=== PATIENT | male | born 1960 | race Caucasian/White ===

== ENCOUNTER 2023-10-14 06:49 | Day surgery (SDC) | payer SELFPAY ==
[2023-10-08 14:27] VITALS: BMI 27.9
[2023-10-14] MEDS ORDERED: BACITRACIN ZINC 15 GM TUBE TOPICAL OINTMENT ONE (08:19)
[2023-10-14] MEDS ORDERED: NITROGLYCERIN 2% OINTMENT - 1GM PACKET TD ONE (08:19)
[2023-10-14] MEDS ORDERED: LIDOCAINE HCL 1%, 10 MG/ML (20ML VIAL) ONE (08:19)
[2023-10-14] MEDS ORDERED: EPINEPHrine/PF 1 MG/1 ML (1:1,000) AMPULE ONE ×2 (08:19→09:32)
[2023-10-14] MEDS ORDERED: BUPIVACAINE HCL/PF 2.5 MG/ML - 30 ML VIAL IJ ONE (08:20)
[2023-10-14] MEDS ORDERED: LIDOCAINE HCL/PF 2% SDV 5ML VIAL ONE (08:25)
[2023-10-14] MEDS ORDERED: MIDAZOLAM HCL 2 MG/2 ML SINGLE DOSE VIAL ONE (08:25)
[2023-10-14] MEDS ORDERED: PROPOFOL 20 ML ONE ×2 (08:25→13:33)
[2023-10-14] MEDS ORDERED: ROCURONIUM BROMIDE 50 MG/5 ML SYRINGE ONE ×2 (08:25→10:54)
[2023-10-14] MEDS ORDERED: ceFAZolin SODIUM 1 GM VIAL ONE (08:28)
[2023-10-14] MEDS ORDERED: BUPIVACAINE LIPOSOME/PF (EXPAREL) 266 MG/20 ML VIAL ONE (09:33)
[2023-10-14] MEDS ORDERED: HEPARIN NA (PORCINE) 5,000 UNITS/ML 1ML VIAL ONE (09:40)
[2023-10-14] MEDS: HEPARIN NA (PORCINE) 5,000 UNITS/ML 1ML VIAL SQ ONE ×2 (09:54→16:31)
[2023-10-14] MEDS ORDERED: ONDANSETRON 4 MG/2 ML VIAL ONE (10:28)
[2023-10-14] MEDS ORDERED: DEXAMETHASONE SOD PHOSPHATE 4 MG/1 ML VIAL ONE (10:28)
[2023-10-14] MEDS ORDERED: BUPIVACAINE HCL/PF 0.25% (2.5MG/ML) 10 ML VIAL ONE (10:31)
[2023-10-14] MEDS: BUPIVACAINE HCL/PF 2.5 MG/ML - 30 ML VIAL IJ ONE (11:50)
[2023-10-14] MEDS: BUPIVACAINE LIPOSOME/PF (EXPAREL) 266 MG/20 ML VIAL NR ONE (11:50)
[2023-10-14] MEDS ORDERED: ONDANSETRON 4 MG/2 ML VIAL IVPUSH PRN (14:57)
[2023-10-14] MEDS ORDERED: ONDANSETRON 4 MG/2 ML VIAL IVPB PRN (14:57)
[2023-10-14] MEDS ORDERED: oxyCODONE HCL 5 MG TABLET PO PRN ×2 (14:57)
[2023-10-14] MEDS: ACETAMINOPHEN 1000 MG/100 ML BAG IVPB ONE (15:06)
[2023-10-14] MEDS: LACTATED RINGERS SOLUTION 1,000 ML IV SCH ×2 (16:22→21:09)
[2023-10-14] MEDS: CEFAZOLIN 1 GM in DEXTROSE 5%-WATER - 50 ML IVPB SCH (18:38)
[2023-10-14] MEDS: ATORVASTATIN CA 20 MG TABLET (FP) PO SCH (21:52)
[2023-10-14] MEDS: oxyCODONE HCL 5 MG TABLET PO PRN (21:52)
[2023-10-15] MEDS ORDERED: FAMOTIDINE/PF 20 MG/2 ML VIAL IVPB ONE (00:15)
[2023-10-15] MEDS ORDERED: ZOLPIDEM TARTRATE 5 MG TABLET PO ONE (00:15)
[2023-10-15] MEDS: ZOLPIDEM TARTRATE 5 MG TABLET PO ONE (00:21)
[2023-10-15 00:27] VITALS: RESP 17
[2023-10-15] MEDS: ACETAMINOPHEN 1000 MG/100 ML BAG IVPB PRN (00:27)
[2023-10-15] MEDS: FAMOTIDINE 20 MG PREMIXED IVPB IVPB ONE (00:35)
[2023-10-15] MEDS: MAG HYDROX/AL HYDROX/SIMETH 30 ML UNIT-DOSE CUP PO PRN (02:16)
[2023-10-15 06:25] VITALS: TEMP 98.1
[2023-10-15] MEDS: HEPARIN NA (PORCINE) 5,000 UNITS/ML 1ML VIAL SQ SCH (08:43)
[2023-10-15 10:31] VITALS: BP 112/76; PULSE 72
== END 2023-10-15 11:29 | disposition home or self-care (01) ==
LOC: FASUSAT 06:49 → SUATTDRO 06:49 → FM/S 16:04 → FASUSAT 10-15 11:29
PROC: 0W0F0ZZ Alteration of Abdominal Wall, Open Approach (ICD-10-PCS; principal; 2023-10-14 10:45)
PROC: 0J083ZZ Alteration of Abdomen Subcutaneous Tissue and Fascia, Percutaneous Approach (ICD-10-PCS; 2023-10-14 10:45)
DX: M95.8 Other specified acquired deformities of musculoskeletal system (principal); E65 Localized adiposity
CPT/HCPCS: 94760; J0131; J1644

== ENCOUNTER 2023-10-22 13:27 | Emergency (ER) | payer BC ==
[2023-10-22 14:17] LABS: HEMATOCRIT 39.2 % (35.4-49); HEMOGLOBIN 12.7 G/dL (11.7-16.9); MCHC 32.3 g/dl (32.0-35.9); MEAN CELL VOLUME 92.6 fl (80-96); PLATELET COUNT 293.2 10^3/uL (134-434); RBC 4.23 10^6/uL (4.00-5.60); RDW 15.6 % (11.9-15.9); WHITE BLOOD COUNT 7.5 10^3/uL (4.0-10.8)
[2023-10-22 14:27] LABS: CALCIUM 8.8 mg/dl (8.5-10.1); CREATININE 0.7 mg/dl (0.6-1.3); POTASSIUM 4.1 mmol/L (3.5-5.1)
[2023-10-22 14:28] LABS: ALBUMIN 3.8 g/dl (3.4-5.0); BILIRUBIN,TOTAL 0.6 mg/dl (0.2-1)
[2023-10-22 15:35] VITALS: BP 132/97; PULSE 67; RESP 16; TEMP 98.4; BMI 26.6
== END 2023-10-22 17:09 | disposition home or self-care (01) ==
LOC: FER 13:27
DX: J98.11 Atelectasis (principal); R06.02 Shortness of breath
CPT/HCPCS: 36415; 71045-TC-FY; 71275-TC; 80053; 84484; 85027; 93005; 99285-25; Q9967

== ENCOUNTER 2023-12-19 13:07 | Emergency (ER) | payer BC ==
[2023-12-19 13:54] VITALS: BP 137/77; PULSE 62; RESP 17; TEMP 98.8; BMI 25.7
[2023-12-19] MEDS ORDERED: ALPRAZolam 0.25 MG TABLET ONE (14:21)
[2023-12-19] MEDS: ALPRAZolam 0.25 MG TABLET PO ONE (14:28)
[2023-12-19 14:58] LABS: HEMATOCRIT 42.7 % (35.4-49); HEMOGLOBIN 13.8 G/dL (11.7-16.9); MCH 30.1 pg (25.7-33.7); MCHC 32.4 g/dl (32.0-35.9); MEAN PLT VOLUME 7.8 fl (7.5-11.1); PLATELET COUNT 210.2 10^3/uL (134-434); RBC 4.59 10^6/uL (4.00-5.60); RDW 14.9 % (11.9-15.9); WHITE BLOOD COUNT 7.9 10^3/uL (4.0-10.8)
[2023-12-19 15:06] LABS: ALBUMIN 4.4 g/dl (3.4-5.0); BILIRUBIN,TOTAL 0.6 mg/dl (0.2-1); CALCIUM 9.5 mg/dl (8.5-10.1); CREATININE 0.7 mg/dl (0.6-1.3); MAGNESIUM 1.8 mg/dL (1.8-2.4); POTASSIUM 3.6 mmol/L (3.5-5.1); TOT PROT 6.8 g/dl (6.4-8.2)
[2023-12-19 15:55] LABS: PLATELET ESTIMATE ADEQUATE
== END 2023-12-19 17:22 | disposition home or self-care (01) ==
LOC: FER 13:07
DX: R20.2 Paresthesia of skin (principal); R20.0 Anesthesia of skin; F41.9 Anxiety disorder, unspecified; Z20.822 Contact with and (suspected) exposure to COVID-19
CPT/HCPCS: 0241U-QW; 36415; 80053; 83735; 84484; 85025; 93005; 99284-25